=== PATIENT | male | born 1955 | race American Indian/Alaskan Native ===

== ENCOUNTER 2018-01-29 13:21 | Inpatient (IN) | payer MEDICAID, OTHER ==
[2018-01-29 13:36] VITALS: BMI 23.9
--- NOTE | 2018-01-29 13:55 | C.PDOC ---
History Of Present Illness 62 y/o male with a history of EtOH abuse presents to the ED for alcohol detox. Patient states he drinks a pint a day. Today he reports he had half a pint earlier today prior to ED arrival. He states he has no medical complaints. Denies any drug use. PMD: none provided Chief Complaint (Nursing): Substance Abuse History Per: Patient History/Exam Limitations: no limitations Onset/Duration Of Symptoms: Hrs Current Symptoms Are (Timing): Still Present Modifying Factor(s): Alcohol Recent travel outside of the [place]: No Past Medical History Reviewed: Historical Data, Nursing Documentation, Vital Signs Vital Signs: Last Vital Signs Temp 98.7 F 01/29/18 20:13 Pulse 69 01/29/18 20:13 Resp 18 01/29/18 20:13 BP 179/96 H 01/29/18 20:13 Pulse Ox 98 01/29/18 20:13 - Medical History PMH: No Chronic Diseases Surgical History: No Surg Hx Family History: States: No Known Family Hx - Social History Hx Tobacco Use: Yes Hx Alcohol Use: Yes Hx Substance Use: No - Immunization History Hx Tetanus Toxoid Vaccination: No Hx Influenza Vaccination: No Hx Pneumococcal Vaccination: No Review Of Systems Except As Marked, All Systems Reviewed And Found Negative. Constitutional: Positive for: Other (EtOH intoxication) Physical Exam - Physical Exam Appears: Non-toxic, No Acute Distress Skin: Normal Color, Warm, Dry Head: Atraumatic Eye(s): bilateral: Normal Inspection, PERRL, EOMI Cardiovascular: Rhythm Regular, No Murmur Respiratory: Normal Breath Sounds Gastrointestinal/Abdominal: Normal Exam, Soft, No Tenderness Neurological/Psych: Oriented x3 ED Course And Treatment - Laboratory Results Result Diagrams: 01/29/18 13:54 01/29/18 13:54 O2 Sat by Pulse Oximetry: 98 (RA) Pulse Ox Interpretation: Normal Medical Decision Making Medical Decision Making: Scribe Attestation: Documented by Cosmo Del Valle acting as a scribe for Lottie Hoffman MD. Scribe Attestation: All medical record entries made by the Scribe were at my direction and personally dictated by me. I have reviewed the chart and agree that the record accurately reflects my personal performance of the history, physical exam, medical decision making, and the department course for this patient. I have also personally directed, reviewed, and agree with the discharge instructions and disposition. Disposition - Disposition Disposition: HOSPITALIZED Disposition Time: 14:20 Condition: STABLE - Clinical Impression Clinical Impression: Drug dependence
[2018-01-29 14:00] LABS: BASO % 0.4 % (0.0-2.0); EOS # 0.2 K/uL (0.0-0.7); EOS % 2.6 % (0.0-4.0); HEMOGLOBIN 12.1 g/dL (12.0-18.0); LYMPH # 2.2 K/uL (1.0-4.3); LYMPH % 35.9 % (20.0-40.0); MEAN CELL VOLUME 89.2 fL (80.0-94.0); MEAN CORPUSCULAR HEMOGLOBIN 29.6 pg (27.0-31.0); MEAN CORPUSCULAR HGB CONC 33.2 g/dL (33.0-37.0); MEAN PLATELET VOLUME 8.1 fL (7.2-11.7); MONO # 0.9 K/uL (0.0-0.8); MONO % 14.7 % (0.0-10.0); NEUT # 2.9 K/uL (1.8-7.0); NEUT % 46.4 % (50.0-75.0); NRBC % 0.1 % (0.0-2.0); RBC 4.09 Mil/uL (4.40-5.90); RED CELL DISTRIBUTION WIDTH 14.4 % (11.5-14.5); WHITE BLOOD COUNT 6.3 K/uL (4.8-10.8)
[2018-01-29 14:15] LABS: ALB/GLOB RATIO 1.2 (1.0-2.1); ALT/SGPT 39 U/L (21-72); AST/SGOT 175 U/L (17-59); BLOOD UREA NITROGEN 16 mg/dL (9-20); CALCIUM 9.3 mg/dl (8.6-10.4); GFR AFRICAN-AMERICAN > 60; GFR NON-AFRICAN AMERICAN > 60
[2018-01-29 14:36] LABS: SQUAMOUS EPITHIAL < 1 /hpf (0-5); URINE BILIRUBIN NEGATIVE (NEGATIVE); URINE BLOOD NEGATIVE (NEGATIVE); URINE CLARITY Clear (Clear); URINE COLOR Yellow (YELLOW); URINE GLUCOSE (UA) NORMAL (Normal); URINE LEUKOCYTE ESTERASE NEG Leu/uL (Negative); URINE PROTEIN 1+ mg/dL (NEGATIVE); URINE UROBILINOGEN NORMAL mg/dL (0.2-1.0)
[2018-01-29 14:51] LABS: BARBITURATES, UR NEGATIVE (NEGATIVE); BENZODIAZEPINES, UR NEGATIVE (NEGATIVE); OPIATES, UR NEGATIVE (NEGATIVE); PHENCYCLIDINE, UR NEGATIVE (NEGATIVE)
--- NOTE | 2018-01-29 15:51 | PCM.BM ---
Treatment Plan Problems - Problems identified on initial assessmt potential for alcohol withdrawal Date Initiated: 01/29/18 Time Initiated: 15:50 Status: Active Treatment assets and liabiliti Patient Assests: cognitively intact Patient Liabilities: substance abuse - Milieu Protocol Maintain good personal hygiene: daily Encourage regular showers, daily Remind patient to perform daily oral care, daily Assist patient to perform ADL's Conduct patient checks and document Observation sheet: Q15 minutes Maintain personal safety: every shift Educate patient to report safety concerns to staff, every shift Monitor environment for contraband/sharps Medication safety: Monitor for expected outcome, potential side effects: every shift, Assess barriers to learning: every shift, Assess readiness for medication education: every shift
[2018-01-29] MEDS: Multiple Vitamins Tab PO SCH (16:46)
[2018-01-30 09:19] LABS: BASO % 0.3 % (0.0-2.0); EOS # 0.2 K/uL (0.0-0.7); EOS % 2.4 % (0.0-4.0); HEMOGLOBIN 11.1 g/dL (12.0-18.0); LYMPH # 1.7 K/uL (1.0-4.3); LYMPH % 26.6 % (20.0-40.0); MEAN CELL VOLUME 89.5 fL (80.0-94.0); MEAN CORPUSCULAR HEMOGLOBIN 29.3 pg (27.0-31.0); MEAN CORPUSCULAR HGB CONC 32.7 g/dL (33.0-37.0); MEAN PLATELET VOLUME 8.7 fL (7.2-11.7); MONO # 0.8 K/uL (0.0-0.8); MONO % 12.6 % (0.0-10.0); NEUT # 3.8 K/uL (1.8-7.0); NEUT % 58.1 % (50.0-75.0); RBC 3.79 Mil/uL (4.40-5.90); RED CELL DISTRIBUTION WIDTH 14.1 % (11.5-14.5); WHITE BLOOD COUNT 6.5 K/uL (4.8-10.8)
--- NOTE | 2018-01-30 09:35 | PCM.PSYCH ---
Initial Psychiatric Evaluation - Initial Psychiatric Evaluation Type of Admission: Voluntary Legal Status: Capacity Chief Complaint (in patient's own words): "I have etoh withdrawal symptoms" History of Present Illness and Precipitating Events: Patient is a 62 year old [place] man admitted to detox unit for etoh detox treatment. Patient reports he has been drinking since the age of 13, no detox or rehab in the past. Patient reports he drinks one pint of gin at minimum a day. Patient last drank a pint of gin just [employer]. He reported alcohol withdrawal symptoms including nausea, hot and cold flushing, sweating, palpitation, tremors. However, he denied any DT, seizure, head concussion, AVH. Patient denies any history of seizure. Patient denies any previous substance abuse treatment. Patient reports a history of hypertension but is not on any meds. Patient denies any medical complaints at this time. Patient denies psych history as well as any acute psychiatric symptoms. Patient denies SI and HI. Legal History: denied Social History: He lives with his 2 adult children and children's mother Current Medications: Active Medications Generic Name Dose Route Start Last Admin Trade Name Freq PRN Reason Stop Dose Admin Clonidine HCl 0.1 mg 01/29/18 16:22 01/29/18 16:46 Catapres PO 0.1 mg Q4H PRN Administration Symptoms of alcohol withdrawl Folic Acid 1 mg 01/29/18 16:30 01/29/18 16:46 Folic Acid PO 1 mg DAILY LUCILA Administration Hydroxyzine HCl 25 mg 01/29/18 16:25 01/29/18 16:46 Atarax PO 25 mg Q6 PRN Administration Anxiety Lorazepam 2 mg 01/29/18 16:30 01/30/18 09:03 Ativan PO 02/03/18 16:29 Not Given Q4 LUCILA Taper Multivitamins 1 tab 01/29/18 16:30 01/29/18 16:46 Hexavitamin PO 1 tab DAILY LUCILA Administration Thiamine HCl 100 mg 01/29/18 16:30 01/29/18 16:46 Vitamin B1 Tab PO 100 mg DAILY LUCILA Administration Trazodone HCl 50 mg 01/29/18 16:22 Desyrel PO HS PRN Insomnia Past Psychiatric History - Past Psychiatric History Previous Treatment History: None History of Abuse: denied History of ETOH/Drug Use: please see HPI History of Family Illness: denied Pertinent Medical Hx (Current Medical&Sleep Prob, Allergies): Allergies Allergy/AdvReac Type Severity Reaction Status Date / Time No Known Allergies Allergy Verified 01/29/18 13:35 No Known Home Med 01/29/18 HTN Review of Systems - Review of Systems Systems not reviewed;Unavailable: Other (cooperative) All systems: reviewed and no additional remarkable complaints except (please see HPI) - Constitutional Constitutional: Sweats - EENT Eyes: UNREMARKABLE - Cardiovascular Cardiovascular: As Per HPI - Respiratory Respiratory: UNREMARKABLE - Genitourinary Genitourinary: UNREMARKABLE - Reproductive: Male Reproductive:Male: UNREMARKABLE - Musculoskeletal Musculoskeletal: UNREMARKABLE - Integumentary Integumentary: UNREMARKABLE - Neurological Neurological: Dizziness, Tremor - Endocrine Endocrine: UNREMARKABLE - Hematologic/Lymphatic Hematologic: UNREMARKABLE Mental Status Examination - Personal Presentation Personal Presentation: Looks stated age, Impairment in gait Additional comments: calm cooperative, disheveled - Affect Affect: Constricted - Motor Activity Motor Activity: Calm - Reliability in Providing Information Reliability in Providing Information: Good - Speech Speech: Organized - Mood Mood: Anxious - Formal Thought Process Formal Thought Process: No Impairment - Hallucinations/Delusions Delusions: Other (denied) - Obsessions/Compulsions Obsessions: None Compulsions: None - Cognitive Functions Orientation: Person, Place, Situation, Time Sensorium: Alert Attention/Concentration: Attentive Estimate of Intelligence: Average Judgement: Intact, as evidence by: Good judgement, Intact, as evidence by: Insight regarding need for hospitalization Memory: Recent intact, as evidence by: Ability to recall events of the day - Risk Risk: Withdrawal - Strength & Assets Inventory Strength & Assets Inventory: Family support, Cooperative - Limitations Limitations: Other (chronic alcohol use) DSM 5 DX - DSM 5 DSM 5 Diagnosis: Alcohol use disorder, severe, dependence, Alcohol withdrawal symptoms HTN - Recommended/Plan of Treatment Treatment Recommendations and Plan of Treatment: Ativan detox Gabapentin for augmentation As needed meds and vitamins Attend groups and activities CA for abstinence and CBT for relapse prevention Support and psychoeducation Consider and encourage MAT Time spend 29 minutes Prognosis: good with medication compliance Discharge Plan and Discharge Criteria: please see after care plan - Smoking Cessation Smoking Cessation Initiated: Yes
[2018-01-30 10:00] LABS: ALB/GLOB RATIO 1.1 (1.0-2.1); ALBUMIN 3.4 g/dL (3.5-5.0); ALT/SGPT 27 U/L (21-72); AST/SGOT 62 U/L (17-59); BLOOD UREA NITROGEN 20 mg/dL (9-20); CALCIUM 9.9 mg/dl (8.6-10.4); GFR AFRICAN-AMERICAN > 60; GFR NON-AFRICAN AMERICAN > 60
--- NOTE | 2018-01-30 10:03 | CP.PCM.CON ---
<PattiSri siddiqui DO - Last Filed: 01/30/18 09:57> History of Present Illness - History of Present Illness History of Present Illness: Medicine consult note Patient is a 62 year old male who initially presented to the hospital for alcohol detox. Blood pressure elevation with decreased heart rate were noted by detox team and medical consult was placed. Patient reports being told in the past that he had elevated blood pressure but he denies ever being treated. Patient denies regular medical follow up. Patient reports drinking about 1.5 bottles of vodka a day, sometimes more- last drink was 01/29/18. He denies drug use but admits to smoking about 4 cigarettes a day since he was a teenager. Patient reports occasional headaches and dizziness, vomiting, and epigastric abdominal pain. He denies hematemesis. He reports poor appetite and reports weight loss but cannot quantify. 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 absent: Chills, Fever, Weakness - EENT Eyes: absent: Blurred Vision Ears: Dizziness Nose/Mouth/Throat: absent: Nasal Congestion, Sore Throat - Cardiovascular Cardiovascular: absent: Chest Pain, Diaphoresis, Dyspnea, Pain Radiating to Arm/ Neck/Jaw, Leg Edema, Lightheadedness, Palpitations, Pedal Edema, Rapid Heart Rate, Syncope - Respiratory Respiratory: absent: Cough, Dyspnea - Gastrointestinal Gastrointestinal: Abdominal Pain, Vomiting. absent: Coffee Ground Emesis, Hematemesis, Hematochezia - Genitourinary Genitourinary: absent: Change in Urinary Stream, Dysuria - Musculoskeletal Musculoskeletal: absent: Arthralgias, Back Pain - Integumentary Integumentary: absent: Rash - Neurological Neurological: Dizziness. absent: Tremor, Weakness Past Patient History - Past Medical History & Family History Past Medical History?: Yes - Past Social History Smoking Status: Light Smoker < 10 Cigarettes Daily - CARDIAC Hx Cardiac Disorders: No Hx Hypertension: Yes - PULMONARY Hx Tuberculosis: No - NEUROLOGICAL HX Cerebrovascular Accident: No Hx Seizures: Yes - HEMATOLOGICAL/ONCOLOGICAL Hx Cancer: No Hx Human Immunodeficiency Virus (HIV): No - MUSCULOSKELETAL/RHEUMATOLOGICAL Hx Falls: No - GENITOURINARY/GYNECOLOGICAL Hx Sexually Transmitted Disorders: No - PSYCHIATRIC Hx Substance Use: No - SURGICAL HISTORY Hx Surgeries: No - ANESTHESIA Hx Anesthesia: No Meds Allergies/Adverse Reactions: Allergies Allergy/AdvReac Type Severity Reaction Status Date / Time No Known Allergies Allergy Verified 01/29/18 13:35 - Medications Medications: Current Medications Clonidine HCl (Catapres) 0.1 mg PO Q4H PRN PRN Reason: Symptoms of alcohol withdrawl Last Admin: 01/29/18 16:46 Dose: 0.1 mg Folic Acid (Folic Acid) 1 mg PO DAILY LUCILA Last Admin: 01/29/18 16:46 Dose: 1 mg Hydroxyzine HCl (Atarax) 25 mg PO Q6 PRN PRN Reason: Anxiety Last Admin: 01/29/18 16:46 Dose: 25 mg Lorazepam (Ativan) 2 mg PO Q4 LUCILA PRN Reason: Taper Stop: 02/03/18 16:29 Last Admin: 01/30/18 09:03 Dose: Not Given Multivitamins (Hexavitamin) 1 tab PO DAILY [facility] Last Admin: 01/29/18 16:46 Dose: 1 tab Thiamine HCl (Vitamin B1 Tab) 100 mg PO DAILY [facility] Last Admin: 01/29/18 16:46 Dose: 100 mg Trazodone HCl (Desyrel) 50 mg PO HS PRN PRN Reason: Insomnia Physical Exam - Constitutional Appears: Older Than Stated Age, Chronically Ill - Head Exam Head Exam: ATRAUMATIC, NORMOCEPHALIC - Eye Exam Eye Exam: EOMI Pupil Exam: PERRL Additional comments: arcus senilis b/l - ENT Exam ENT Exam: Mucous Membranes Dry Additional comments: poor dentition - Neck Exam Neck exam: Negative for: Lymphadenopathy, Thyromegaly - Respiratory Exam Respiratory Exam: Clear to Auscultation Bilateral, NORMAL BREATHING PATTERN. absent: Rales, Rhonchi, Wheezes - Cardiovascular Exam Cardiovascular Exam: Bradycardia (counted as 51 at bedside), +S1, +S2 - GI/Abdominal Exam GI & Abdominal Exam: Normal Bowel Sounds, Soft. absent: Tenderness - Extremities Exam Extremities exam: Positive for: normal inspection. Negative for: calf tenderness, pedal edema - Neurological Exam Neurological exam: Alert - Skin Skin Exam: Dry, Warm Results - Vital Signs Recent Vital Signs: Last Vital Signs Temp 97.7 F 01/30/18 06:27 Pulse 46 L 01/30/18 08:00 Resp 18 01/30/18 06:27 BP 188/105 H 01/30/18 08:00 Pulse Ox 99 01/30/18 06:27 - Labs Result Diagrams: 01/30/18 09:15 01/29/18 13:54 Labs: Laboratory Results - last 24 hr 01/29/18 01/29/18 01/29/18 13:54 13:54 14:25 WBC 6.3 RBC 4.09 L Hgb 12.1 Hct 36.4 MCV 89.2 MCH 29.6 MCHC 33.2 RDW 14.4 Plt Count 287 MPV 8.1 Neut % (Auto) 46.4 L Lymph % (Auto) 35.9 [place] % (Auto) 14.7 H Eos % (Auto) 2.6 Baso % (Auto) 0.4 Neut # (Auto) 2.9 Lymph # (Auto) 2.2 [place] # (Auto) 0.9 H Eos # (Auto) 0.2 Baso # (Auto) 0.0 Sodium 148 Potassium 3.5 L Chloride 106 Carbon Dioxide 30 Anion Gap 16 BUN 16 Creatinine 1.0 Est GFR ( Amer) > 60 Est GFR (Non-Af Amer) > 60 Random Glucose 98 Calcium 9.3 Total Bilirubin 0.2 AST 175 H ALT 39 Alkaline Phosphatase 52 Total Protein 7.4 Albumin 4.0 Globulin 3.4 Albumin/Globulin Ratio 1.2 Urine Color Yellow Urine Clarity Clear Urine pH 5.0 Ur Specific [place] 1.020 Urine Protein 1+ H Urine Glucose (UA) Normal Urine Ketones Negative Urine Blood Negative Urine Nitrate Negative Urine Bilirubin Negative Urine Urobilinogen Normal Ur Leukocyte Esterase Neg Urine WBC (Auto) 1 Urine RBC (Auto) < 1 Ur Squamous Epith Cells < 1 Urine Opiates Screen Urine Methadone Screen Ur Barbiturates Screen Ur Phencyclidine Scrn Ur Amphetamines Screen U Benzodiazepines Scrn U Oth Cocaine Metabols U Cannabinoids Screen Alcohol, Quantitative 221 H 01/29/18 01/30/18 14:25 09:15 WBC 6.5 RBC 3.79 L Hgb 11.1 L Hct 33.9 L MCV 89.5 MCH 29.3 MCHC 32.7 L RDW 14.1 Plt Count 280 MPV 8.7 Neut % (Auto) 58.1 Lymph % (Auto) 26.6 [place] % (Auto) 12.6 H Eos % (Auto) 2.4 Baso % (Auto) 0.3 Neut # (Auto) 3.8 Lymph # (Auto) 1.7 [place] # (Auto) 0.8 Eos # (Auto) 0.2 Baso # (Auto) 0.0 Sodium Potassium Chloride Carbon Dioxide Anion Gap BUN Creatinine Est GFR ( Amer) Est GFR (Non-Af Amer) Random Glucose Calcium Total Bilirubin AST ALT Alkaline Phosphatase Total Protein Albumin Globulin Albumin/Globulin Ratio Urine Color Urine Clarity Urine pH Ur Specific [place] Urine Protein Urine Glucose (UA) Urine Ketones Urine Blood Urine Nitrate Urine Bilirubin Urine Urobilinogen Ur Leukocyte Esterase Urine WBC (Auto) Urine RBC (Auto) Ur Squamous Epith Cells Urine Opiates Screen Negative Urine Methadone Screen Negative Ur Barbiturates Screen Negative Ur Phencyclidine Scrn Negative Ur Amphetamines Screen Negative U Benzodiazepines Scrn Negative U Oth Cocaine Metabols Negative U Cannabinoids Screen Negative Alcohol, Quantitative Assessment & Plan - Assessment and Plan (Free Text) Assessment: Hypertension transfer patient from to telemetry for monitoring patient received one dose norvasc 5mg this AM, will repeat blood pressure reading and continue to monitor will hold clonidine due to bradycardia and potential for rebound HTN EKG with LVH, possible peaked T waves will check echo as well due to signs of hypertensive heart disease on EKG Abnormal EKG possible peaked T waves as well as LVH cardiology consult placed- Dr. Doss- help appreciated will check magnesium with repeat chemistry panel will check SRIKANTH x 3 Bradycardia will monitor on telemetry hold clonidine, no Beta blockers Alcohol Detox atarax 35mg PO q6prn ativan 2mg PO q4prn multivitamin daily thiamine 100mg PO daily trazodone 50mg PO HS prn further management as per psychiatry team Plan discussed with Dr. Rodriguez <Irma Rodriguez V - Last Filed: 01/30/18 14:44> Meds - Medications Medications: Current Medications Amlodipine Besylate (Norvasc) 5 mg PO DAILY LUCILA Clonidine HCl (Catapres) 0.1 mg PO Q4H PRN PRN Reason: Symptoms of alcohol withdrawl Last Admin: 01/29/18 16:46 Dose: 0.1 mg Enoxaparin Sodium (Lovenox) 40 mg SC DAILY [facility] Folic Acid (Folic Acid) 1 mg PO DAILY [facility] Last Admin: 01/30/18 10:41 Dose: Not Given Hydroxyzine HCl (Atarax) 25 mg PO Q6 PRN PRN Reason: Anxiety Last Admin: 01/29/18 16:46 Dose: 25 mg Lorazepam (Ativan) 2 mg PO Q4 LUCILA PRN Reason: Taper Stop: 02/03/18 16:29 Last Admin: 01/30/18 11:50 Dose: 2 mg Multivitamins (Hexavitamin) 1 tab PO DAILY [facility] Last Admin: 01/30/18 10:50 Dose: Not Given Thiamine HCl (Vitamin B1 Tab) 100 mg PO DAILY [facility] Last Admin: 01/30/18 10:50 Dose: Not Given Trazodone HCl (Desyrel) 50 mg PO HS PRN PRN Reason: Insomnia Results - Vital Signs Recent Vital Signs: Last Vital Signs Temp 97.7 F 01/30/18 06:27 Pulse 74 01/30/18 11:49 Resp 18 01/30/18 06:27 BP 151/87 H 01/30/18 11:49 Pulse Ox 99 01/30/18 06:27 - Labs Result Diagrams: 01/30/18 09:15 01/30/18 09:15 Labs: Laboratory Results - last 24 hr 01/29/18 01/29/18 01/30/18 14:25 14:25 09:15 WBC 6.5 RBC 3.79 L Hgb 11.1 L Hct 33.9 L MCV 89.5 MCH 29.3 MCHC 32.7 L RDW 14.1 Plt Count 280 MPV 8.7 Neut % (Auto) 58.1 Lymph % (Auto) 26.6 [place] % (Auto) 12.6 H Eos % (Auto) 2.4 Baso % (Auto) 0.3 Neut # (Auto) 3.8 Lymph # (Auto) 1.7 [place] # (Auto) 0.8 Eos # (Auto) 0.2 Baso # (Auto) 0.0 Sodium Potassium Chloride Carbon Dioxide Anion Gap BUN Creatinine Est GFR ( Amer) Est GFR (Non-Af Amer) Random Glucose Calcium Magnesium Total Bilirubin AST ALT Alkaline Phosphatase Total Creatine Kinase Total Protein Albumin Globulin Albumin/Globulin Ratio Free T4 TSH 3rd Generation Urine Color Yellow Urine Clarity Clear Urine pH 5.0 Ur Specific [place] 1.020 Urine Protein 1+ H Urine Glucose (UA) Normal Urine Ketones Negative Urine Blood Negative Urine Nitrate Negative Urine Bilirubin Negative Urine Urobilinogen Normal Ur Leukocyte Esterase Neg Urine WBC (Auto) 1 Urine RBC (Auto) < 1 Ur Squamous Epith Cells < 1 Urine Opiates Screen Negative Urine Methadone Screen Negative Ur Barbiturates Screen Negative Ur Phencyclidine Scrn Negative Ur Amphetamines Screen Negative U Benzodiazepines Scrn Negative U Oth Cocaine Metabols Negative U Cannabinoids Screen Negative 01/30/18 01/30/18 01/30/18 09:15 11:45 11:47 WBC RBC Hgb Hct MCV MCH MCHC RDW Plt Count MPV Neut % (Auto) Lymph % (Auto) [place] % (Auto) Eos % (Auto) Baso % (Auto) Neut # (Auto) Lymph # (Auto) [place] # (Auto) Eos # (Auto) Baso # (Auto) Sodium 140 Potassium 4.9 Chloride 102 Carbon Dioxide 29 Anion Gap 13 BUN 20 Creatinine 0.8 Est GFR ( Amer) > 60 Est GFR (Non-Af Amer) > 60 Random Glucose 98 Calcium 9.9 Magnesium 1.2 L Total Bilirubin 0.7 AST 62 H D ALT 27 Alkaline Phosphatase 45 Total Creatine Kinase Total Protein 6.6 Albumin 3.4 L Globulin 3.2 Albumin/Globulin Ratio 1.1 Free T4 1.08 TSH 3rd Generation 0.84 Urine Color Urine Clarity Urine pH Ur Specific [place] Urine Protein Urine Glucose (UA) Urine Ketones Urine Blood Urine Nitrate Urine Bilirubin Urine Urobilinogen Ur Leukocyte Esterase Urine WBC (Auto) Urine RBC (Auto) Ur Squamous Epith Cells Urine Opiates Screen Urine Methadone Screen Ur Barbiturates Screen Ur Phencyclidine Scrn Ur Amphetamines Screen U Benzodiazepines Scrn U Oth Cocaine Metabols U Cannabinoids Screen 01/30/18 14:10 WBC RBC Hgb Hct MCV MCH MCHC RDW Plt Count MPV Neut % (Auto) Lymph % (Auto) [place] % (Auto) Eos % (Auto) Baso % (Auto) Neut # (Auto) Lymph # (Auto) [place] # (Auto) Eos # (Auto) Baso # (Auto) Sodium Potassium Chloride Carbon Dioxide Anion Gap BUN Creatinine Est GFR ( Amer) Est GFR (Non-Af Amer) Random Glucose Calcium Magnesium Total Bilirubin AST ALT Alkaline Phosphatase Total Creatine Kinase 66 Total Protein Albumin Globulin Albumin/Globulin Ratio Free T4 TSH 3rd Generation Urine Color Urine Clarity Urine pH Ur Specific [place] Urine Protein Urine Glucose (UA) Urine Ketones Urine Blood Urine Nitrate Urine Bilirubin Urine Urobilinogen Ur Leukocyte Esterase Urine WBC (Auto) Urine RBC (Auto) Ur Squamous Epith Cells Urine Opiates Screen Urine Methadone Screen Ur Barbiturates Screen Ur Phencyclidine Scrn Ur Amphetamines Screen U Benzodiazepines Scrn U Oth Cocaine Metabols U Cannabinoids Screen Attending/Attestation - Attestation I have personally seen and examined this patient.: Yes I have fully participated in the care of the patient.: Yes I have reviewed all pertinent clinical information: Yes Notes (Text): Patient seen, examined and case discussed with day-time resident. Patient admitted to detox for alcohol withdrawal. Medicine consult given heart rate in the 40s and asymptomatic hypertensive urgency. Reviewed medications: patient had not received Clonidine, Ativan, Atarax since yesterday. Patient seen at bedside. patient is sleepy but arousable and tends to mumble. He does not feel lightheaded nor dizzy. He was told in the past he has blood pressure problems but never took medications for it. Patient has not tremors or not in any apparent DTs. Patient's EKG abnormality over QT appears widened and possible LVH. 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 If workup negative, will consider transfer back to detox. Assessment/Plan 1) Hypertensive Urgency Assessment/Plan * transfer patient from T to telemetry for monitoring * patient received one dose norvasc 5mg this AM, will repeat blood pressure reading and continue to monitor * will hold clonidine due to bradycardia and potential for rebound HTN * EKG with LVH, possible peaked T waves * will check echo as well due to signs of hypertensive heart disease on EKG * Will check cardiac enzymes and EKGs 2) Abnormal EKG Assessment/Plan * possible peaked T waves as well as LVH * cardiology consult placed- Dr. Doss- help appreciated * will check magnesium with repeat chemistry panel * will check SRIKANTH x 3 3) Bradycardia Assessment/Plan * will monitor on telemetry * unclear if bradycardia is from increased vagal tone since patient was asleep or not. * hold clonidine, no Beta blockers * No prolonged QT, QT is widened * Will check electrolytes 4) Alcohol Detox Assessment/Plan * atarax 35mg PO q6prn * ativan 2mg PO q4prn (built in protocol) * multivitamin daily * thiamine 100mg PO daily * trazodone 50mg PO HS prn * further management as per psychiatry team
[2018-01-30] MEDS: Multiple Vitamins Tab PO SCH (10:50)
[2018-01-30] MEDS: Magnesium Sulfate 1 gm in D5W 1 GM/100 ML BAG IVPB SCH ×3 (12:45→13:15)
[2018-01-30 16:25] VITALS: BP 177/96; RESP 20; TEMP 97.6; O2SAT 96
[2018-01-30 18:46] VITALS: PULSE 70
[2018-01-30 19:46] LABS: CK-MB 0.64 ng/mL (0.0-3.38)
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
--- NOTE | 2018-01-31 09:11 | RAD ---
HISTORY: preadmission COMPARISON: No prior. FINDINGS: LUNGS: No active pulmonary disease. PLEURA: No significant pleural effusion identified, no pneumothorax apparent. CARDIOVASCULAR: Normal. OSSEOUS STRUCTURES: No significant abnormalities. VISUALIZED UPPER ABDOMEN: Normal. OTHER FINDINGS: None. IMPRESSION: No active disease.
[2018-01-31] MEDS ORDERED: Enoxaparin 40 mg Syringe SC SCH (10:00)
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
[2018-02-01 09:55] LABS: HEPATITIS B SURFACE AG Negative (NEGATIVE)
[2018-02-01 10:01] LABS: HEPATITIS A IGM NEGATIVE (NEGATIVE); HEPATITIS B CORE AB NEGATIVE (NEGATIVE)
[2018-02-01 10:10] LABS: HEPATITIS C ANTIBODY NEGATIVE (NEGATIVE)
== END 2018-01-30 21:08 | disposition left against medical advice (07) | DRG 749 ==
LOC: C.ER 13:21 → C.7D 15:09 → C.6T 01-30 12:11
PROVIDERS: ADMIT Psychiatry & Neurology Psychiatry; ATTEND Hospitalist
PROC: HZ2ZZZZ Detoxification Services for Substance Abuse Treatment (ICD-10-PCS; principal; 2018-01-29)
DX: F10.230 Alcohol dependence with withdrawal, uncomplicated (principal); I16.0 Hypertensive urgency; F17.210 Nicotine dependence, cigarettes, uncomplicated; I10 Essential (primary) hypertension; R00.1 Bradycardia, unspecified; Y90.7 Blood alcohol level of 200-239 mg/100 ml